=== PATIENT | female | born 1960 | race Caucasian/White ===

== ENCOUNTER → 2016-10-07 | Outpatient (CLI) | payer OTHER ==
[2016-10-07 18:53] LABS: THYROID STIMULATING HORMONE < 0.005 uIu/ml (0.300-4.500)
[2016-10-07 19:35] LABS: LYME DISEASE AB IGG NEG (NEG); LYME DISEASE AB IGM NEG (NEG)
== END | disposition home or self-care (01) ==
LOC: C.LABMFLN 12:02
PROVIDERS: ATTEND Family Medicine
DX: E55.9 Vitamin D deficiency, unspecified (principal); E53.8 Deficiency of other specified B group vitamins; E05.90 Thyrotoxicosis, unspecified without thyrotoxic crisis or storm; A69.20 Lyme disease, unspecified

== ENCOUNTER → 2017-06-30 | Outpatient (CLI) | payer OTHER ==
[2017-07-02 11:01] LABS: MICROSOMAL AB 189 IU/ML (<9)
== END | disposition home or self-care (01) ==
LOC: C.LABMFLN 14:21
PROVIDERS: ATTEND Family Medicine
DX: E06.9 Thyroiditis, unspecified (principal); J02.9 Acute pharyngitis, unspecified

== ENCOUNTER 2024-02-03 11:54 | Inpatient (IN) ==
[2024-02-03 12:32] LABS: Appearance Urine Slightly Cloudy (Clear); Bilirubin Urine 1+ (Negative); Blood Urine Trace-intact (Negative); Color Urine Yellow; Glucose Urine UA Negative (Negative); Ketones Urine Trace (Negative); Leukocyte Esterase Urine Negative (Negative); Nitrite Urine Negative (Negative); Protein Urine 1+ (Negative); Specific Gravity Urine 1.025 (1.000-1.030); Urobilinogen Urine Positive (Negative)
[2024-02-03 12:45] LABS: Epithelial Cell Urine >20 /hpf (0-2)
[2024-02-03 12:46] LABS: Bacteria Urine 3+ (None Seen); Hyaline Casts Urine Present /lpf (None Presnt); WBC Urine 0-5 /hpf (0-5)
[2024-02-03 13:00] LABS: Basophils # (auto) 0.08 K/uL (0.00-0.20); Basophils % (auto) 0.6 %; Eosinophils % (auto) 0.8 %; Hemoglobin 12.8 g/dl (12.0-16.0); Immature Granulocytes # (auto) 0.09 K/uL (0.01-0.20); Immature Granulocytes % (auto) 0.7 %; Lymphocytes # (auto) 1.46 K/uL (1.20-3.40); Lymphocytes % (auto) 11.1 %; Mean Corpuscular Hemoglobin 31.1 pg (25.0-34.0); Mean Corpuscular Hgb Conc 33.7 g/dL (32.0-36.0); Mean Corpuscular Volume 92.2 fL (80.0-100.0); Mean Platelet Volume 9.4 fL (9.4-12.4); Monocytes # (auto) 0.73 K/uL (0.11-0.59); Monocytes % (auto) 5.5 %; Neutrophils # (auto) 10.73 K/uL (1.40-6.50); Neutrophils % (auto) 81.3 %; Platelet Count 621 K/uL (130-400); RDW Coefficient of Variation 11.7 % (11.5-14.5); RDW Standard Deviation 39.6 fL (36.4-46.3); Red Blood Count 4.12 M/uL (4.20-5.40); White Blood Count 13.19 K/ul (4.8-10.8)
[2024-02-03 13:03] LABS: Albumin Globulin Ratio 0.9 (0.9-2); Albumin Level 3.6 gm/dl (3.4-5.0); BUN Creatinine Ratio 14.4 (10-20); Bilirubin,Total 0.4 mg/dl (0.2-1.0); Calcium 9.3 mg/dl (8.6-10.3); Creatinine Clr Calc Pharmacy 41.4 ml/min; Globulin 4.1 gm/dl (2.5-4.0); Potassium 3.2 mmol/L (3.5-5.1); Total Protein 7.7 gm/dl (6.0-8.3)
--- NOTE | 2024-02-03 13:41 | XRay Report ---
XR chest 1V portable CLINICAL HISTORY: illness COMPARISON STUDY: Chest CT May 02, 2023. Chest radiograph April 02, 2023. FINDINGS: No pneumothorax or pleural effusion is present. There is a 4.9 cm right suprahilar airspace opacity. There is mild asymmetric prominence of the right hilum. Lower lung interstitial thickening is present. There is underlying emphysema. No pneumothorax or pleural effusion is present. Cardiomedi astinal silhouette is normal. IMPRESSION: 1. 4.9 cm right suprahilar airspace opacity. This favors pneumonia in the correct clinical setting an d radiographic follow-up is recommended to ensure resolution. If the clinical picture is not suggesti ve of pneumonia, a chest CT is recommended to exclude a pulmonary lesion and right hilar lymphadenopa thy. 2. Lower lung interstitial thickening which may also be infectious. 3. Mild asymmetric right hilar prominence which may be due to overlapping airspace opacity or lymphad enopathy. 4. Emphysema. ACT 112: Positive. There are findings on this exam that require communication between the performing entity and the patient following Patient Test Result Information Act ([place] Act 112) guidelines. Electronically signed by: Sb Pacheco M.D. 02/03/2024 1:39 PM
[2024-02-03 13:59] LABS: Magnesium 1.8 mg/dl (1.7-2.4)
[2024-02-03] MEDS ORDERED: VANCOMYCIN CONSULT ACTIVE PRN (14:24)
--- NOTE | 2024-02-03 14:30 | Emergency Department Note ---
History of Present Illness General Chief Complaint: Abnormal Labs/Diagnostic Testing Stated Complaint: ABN RESULTS ON A CT SCAN Time Seen by Provider: 02/03/24 13:02 History of Present Illness Provider Complaint: + abnormal lab Returns today for: + called because of abnormal lab/test Description of abnormal result: Abnormal CT Associated symptoms: + shortness of breath HPI narrative: 63-year-old smoker with history of COPD presents emergency department for an abnormal CT. Patient reports that for the last 1 to 2 weeks she has been having increasing cough and difficulty breathing. Patient states she has been on multiple antibiotics including a Z-Gil and Augmentin as well as prednisone. Patient states that she had an outpatient CT scan of her chest done and was told to come into the emergency department to make sure she does not have a fungus or cancer. Home Medications Medication Instructions Recorded Confirmed Type fexofenadine 60 mg-pseudoephedrine 1 tab PO BID #180 tabs 12/27/19 01/29/24 Rx ER 120 mg tablet,ext.release,12 hr fluoxetine 40 mg capsule 40 mg PO BID #180 caps 06/25/23 01/29/24 Rx Spacer for Inhaler #1 ea 08/15/23 01/29/24 Rx olmesartan 5 mg tablet 10 mg (2 x 5 mg) PO QAM #180 tabs 09/16/23 01/29/24 Rx L.acidoph, paracasei,B. lactis 10 1 cell (0 x 10 billion cell) PO 10/07/23 01/29/24 Rx billion cell capsule DAILY #30 caps chlordiazepoxide HCl 10 mg capsule 10 mg PO TID #90 caps 10/13/23 01/29/24 Rx hydrochlorothiazide 25 mg tablet 25 mg PO DAILY #30 tabs 10/13/23 01/29/24 Rx hydrocodone 5 mg-acetaminophen 325 1 tab PO BID PRN pain #60 tabs 10/22/23 01/29/24 Rx mg tablet albuterol sulfate 90 mcg/actuation 2 puff inhalation Q4H PRN 10/24/23 01/29/24 Rx aerosol inhaler shortness of breath or wheezing #18 grams fluticasone fur. 100 mcg-umeclid 1 inh inhalation DAILY 12/02/23 01/29/24 History 62.5 mcg-vilant 25 mcg inhalat.powder (Trelegy Ellipta) famotidine 20 mg tablet 20 mg PO BID #60 tabs 01/12/24 01/29/24 Rx folic acid 1 mg tablet 1 mg PO BID #60 tabs 01/12/24 01/29/24 Rx esomeprazole magnesium 20 mg 20 mg PO BID #60 caps 01/23/24 01/29/24 Rx capsule,delayed release (Nexium) amoxicillin 875 mg-potassium 1 tab PO BID 01/29/24 01/29/24 History clavulanate 125 mg tablet azithromycin 250 mg tablet See Rx Instructions PO .COMPLEX #6 01/29/24 01/29/24 Rx tabs prednisone 20 mg tablet 20 mg PO BID 01/29/24 01/29/24 History Allergies Allergy/AdvReac Type Severity Reaction Status Date / Time NUBIA Inhibitors Allergy Unknown Unknown Verified 01/29/24 14:04 varenicline [From Chantix] AdvReac Intermediate nausea Verified 01/29/24 14:04 Past Med/Surg History Problem List Lesion of lung (Acute) Cavitating mass in right lower lung lobe History of COVID-19 Kidney cysts right - 1.7cm, left 2.8cm Bladder wall thickening Renal lesion Oral candidiasis Abdominal bloating Wheezing Hyponatremia Right upper quadrant pain Dysuria Cough Candidiasis H/O: hysterectomy Depression (Acute) Current smoker (Acute) Benign essential hypertension (Acute) Asthma (Acute) Depression with anxiety (Acute) Acid reflux disease with ulcer (Acute) Left rotator cuff tear History of partial hysterectomy H/O wisdom tooth extraction Asthma with COPD with exacerbation Bronchitis Carpal tunnel syndrome, left COPD (chronic obstructive pulmonary disease) Tobacco abuse Lumbar disc disease Cervical disc disease Burning with urination UTI (urinary tract infection) Screening for colon cancer Cough Stuffy and runny nose Wheezing Hyponatremia Seasonal allergies Lesion of vocal fold Hoarseness of voice History of hysterectomy Medical History Cervical disc disease Carpal tunnel syndrome Osteoarthritis Rheumatoid arthritis GERD (gastroesophageal reflux disease) Hypertension Depression with anxiety Lesion of vocal cord Chronic bronchitis rare res inh use Chronic obstructive pulmonary disease rare res inh use Pinched nerve in neck Surgical History History of throat surgery Microsuspension laryngoscopy with excisional biopsy of right true vocal fold lesion - 10/01/21 - Dr. Dahl H/O wisdom tooth extraction History of bilateral tubal ligation History of esophagogastroduodenoscopy (EGD) History of tooth extraction History of repair of rotator cuff left History of ear surgery Right History of back surgery lumbar disc surgery Status post hemilaminotomy Family History Father Heart disease Hypertension Aunt Breast cancer Grandmother Diabetes Other Allergies Cancer No family history of adverse response to anesthesia No family history of bleeding disorder Social History Smoking Status: Current every day smoker Tobacco Type: Cigarettes Age Started Using Tobacco: 19; packs per day: 1; Cigarettes Per Day: approx 1 ppd; Second Hand Exposure: No; Do You Dip or Chew Tobacco: No; Hx Alcohol Use: Yes Alcohol type: wine Hx Substance Use: No Preferred Language: Nigerien Communication Ability: Effective Visual Impairment: No Limitations Hearing Ability: Normal Energy Efficiency Engineer Required: No Beliefs That Will Affect Care: None Current Living Situation: Spouse current occupational status: employed Feels Safe at Home: Yes caffeine: Yes (2 cups a day) Dental Care, Regularly: Yes Physical Activity Frequency: Does not Exercise Seatbelt Use: always Assistive Devices: Glasses Physical Exam 2 Vital Signs: Vital Signs - 24 hr 02/03/24 11:57 02/03/24 13:17 02/03/24 14:11 Temperature 36.8 C Temperature Source Temporal Artery Sc an Pulse Rate 94 H 87 Pulse Rate [Apical ] 86 Pulse Rhythm Regular Pulse Strength [Ap ical] Normal Respiratory Rate 20 18 Respiratory Effort / Characteristics Non-Labored Sponta neous Non-Labored Sponta neous Respiratory Depth Normal Normal Respiratory Patter n Regular Blood Pressure 102/67 Blood Pressure [Le ft Arm] 110/73 Blood Pressure Shanna n 78 Blood Pressure Shanna n [Left Arm] 85 Pulse Oximetry 98 97 Oxygen Delivery Me thod Room Air Room Air Sepsis Recent Feve r Within 48 Hours No Sepsis New/Unexpla ined Change in Men is[place] Status No Sepsis Action Take n by Nursing No Action Required Physical Exam: Physical Exam HENT: Exam performed. - Head: Normocephalic and atraumatic. EYES: Conjunctivae and EOM are normal. Right eye exhibits no discharge. Left eye exhibits no discharge. No scleral icterus. NECK: Normal range of motion. Neck supple. No JVD present. CV: Normal rate, regular rhythm, normal heart sounds and intact distal pulses. There is no peripheral edema. Palpable radial pulses bue. PULM/CHEST: Rhonchi bilaterally. Expiratory wheezes bilaterally. ABD: The abdomen is soft. There is no tenderness. NEURO: Motor and sensation grossly intact. SKIN: Skin is warm and dry. He is not diaphoretic. PSYCH: normal mood and affect. Behavior is normal. Judgment and thought content normal. Course Course 1302: The patient was evaluated in room A12. A complete history and physical exam was performed Cardiac monitoring: An order was placed for continuous cardiac monitoring. The monitor shows a rate of 90 with sinus rhythm interpreted by me External medical records reviewed. Patient had an outpatient CT scan of her chest without contrast done on January 30, 2024, [address] scan showed a thick-walled cystic lesion in the right lower lobe with surrounding groundglass opacity with septal thickening. Differential included malignancy, infection, or fungal abscess. They recommended a bronchoscopy. 1418: Vital signs stable. Labs show leukocytosis of 13. Patient has been on steroids. Lactic acid within normal limits. Sodium 129. Potassium 3.2. Potassium repleted orally. Discussed the case with pulmonology Dr. Molina. He recommends admitting to the inpatient team for bronchoscopy tomorrow. He states to begin the patient on Vanco and Zosyn. [facility] hospitalist team will be made aware of the patient. Medical Decision Making Medical Records Attestation: I reviewed the patient's medical records. External medical records reviewed. Patient had an outpatient CT scan of her chest without contrast done on January 30, 2024, [address] scan showed a thick-walled cystic lesion in the right lower lobe with surrounding groundglass opacity with septal thickening. Differential included malignancy, infection, or fungal abscess. They recommended a bronchoscopy. Laboratory Data Attestation: I reviewed the patient's lab results. 02/03/24 12:16 02/03/24 12:16 Lab Results 02/03/24 02/03/24 02/03/24 Range/Units 12:05 12:16 13:45 WBC 13.19 H (4.8-10.8) K/ul RBC 4.12 L (4.20-5.40) M/uL Hgb 12.8 (12.0-16.0) g/dl Hct 38.0 (37.0-47.0) % MCV 92.2 (80.0-100.0) fL MCH 31.1 (25.0-34.0) pg MCHC 33.7 (32.0-36.0) g/dL RDW Std Deviation 39.6 (36.4-46.3) fL RDW Coeff of Lissette 11.7 (11.5-14.5) % Plt Count 621 H (130-400) K/uL MPV 9.4 (9.4-12.4) fL Immature Gran % (Auto) 0.7 % Neut % (Auto) 81.3 % Lymph % (Auto) 11.1 % [place] % (Auto) 5.5 % Eos % (Auto) 0.8 % Baso % (Auto) 0.6 % Neut # (Auto) 10.73 H (1.40-6.50) K/uL Lymph # (Auto) 1.46 (1.20-3.40) K/uL [place] # (Auto) 0.73 H (0.11-0.59) K/uL Eos # (Auto) 0.10 (0.00-0.50) K/uL Baso # (Auto) 0.08 (0.00-0.20) K/uL Immature Gran # (Auto) 0.09 (0.01-0.20) K/uL Sodium 129 L (136-145) mmol/L Potassium 3.2 L (3.5-5.1) mmol/L Chloride 91 L (98-107) mmol/L Carbon Dioxide 29 (21-32) mmol/L Anion Gap 9 (3-11) BUN 19 (6-23) mg/dl Creatinine 1.32 H (0.6-1.2) mg/dl Est Cr Clr Drug Dosing 41.4 ml/min eGFR 45.65 BUN/Creatinine Ratio 14.4 (10-20) Glucose 106 H (70-99(Fasting)) mg/dl Lactate 0.9 (0.4-2.0) mmol/L Calcium 9.3 (8.6-10.3) mg/dl Magnesium 1.8 (1.7-2.4) mg/dl Total Bilirubin 0.4 (0.2-1.0) mg/dl AST 15 (13-39) U/L ALT 15 (7-52) U/L Alkaline Phosphatase 96 (34-104) U/L Total Protein 7.7 (6.0-8.3) gm/dl Albumin 3.6 (3.4-5.0) gm/dl Globulin 4.1 H (2.5-4.0) gm/dl Albumin/Globulin Ratio 0.9 (0.9-2) Urine Color Yellow Urine Appearance Slightly Cloudy (Clear) Urine pH 5.0 (4.5-7.5) Ur Specific Wisdom 1.025 (1.000-1.030) Urine Protein 1+ H (Negative) Urine Glucose (UA) Negative (Negative) Urine Ketones Trace H (Negative) Urine Blood Trace-intact H (Negative) Urine Nitrite Negative (Negative) Urine Bilirubin 1+ H (Negative) Urine Urobilinogen Positive H (Negative) Ur Leukocyte Esterase Negative (Negative) Urine RBC 3-5 H (0-2) /hpf Urine WBC 0-5 (0-5) /hpf Ur Epithelial Cells >20 H (0-2) /hpf Urine Bacteria 3+ H (None Seen) Hyaline Casts Present A (None Presnt) /lpf Imaging Data Radiologist's Impression: Chest X-Ray 02/03/24 12:03 XR chest 1V portable CLINICAL HISTORY: illness COMPARISON STUDY: Chest CT May 02, 2023. Chest radiograph April 02, 2023. FINDINGS: No pneumothorax or pleural effusion is present. There is a 4.9 cm right suprahilar airspace opacity. There is mild asymmetric prominence of the right hilum. Lower lung interstitial thickening is present. There is underlying emphysema. No pneumothorax or pleural effusion is present. Cardiomediastinal silhouette is normal. IMPRESSION: 1. 4.9 cm right suprahilar airspace opacity. This favors pneumonia in the correct clinical setting and radiographic follow-up is recommended to ensure resolution. If the clinical picture is not suggestive of pneumonia, a chest CT is recommended to exclude a pulmonary lesion and right hilar lymphadenopathy. 2. Lower lung interstitial thickening which may also be infectious. 3. Mild asymmetric right hilar prominence which may be due to overlapping airspace opacity or lymphadenopathy. 4. Emphysema. ACT 112: Positive. There are findings on this exam that require communication between the performing entity and the patient following Patient Test Result Information Act ([place] Act 112) guidelines. Electronically signed by: Sb Pacheco M.D. 02/03/2024 1:39 PM ECG Data Attestation: I personally reviewed and interpreted this ECG as follows: Rate (beats per minute): 93 Rhythm: normal sinus Findings: no ST depression, no ST elevation or no prolonged QT MDM Narrative 1302: The patient was evaluated in room A12. A complete history and physical exam was performed Cardiac monitoring: An order was placed for continuous cardiac monitoring. The monitor shows a rate of 90 with sinus rhythm interpreted by me External medical records reviewed. Patient had an outpatient CT scan of her chest without contrast done on January 30, 2024, [address] scan showed a thick-walled cystic lesion in the right lower lobe with surrounding groundglass opacity with septal thickening. Differential included malignancy, infection, or fungal abscess. They recommended a bronchoscopy. 1418: Vital signs stable. Labs show leukocytosis of 13. Patient has been on steroids. Lactic acid within normal limits. Sodium 129. Potassium 3.2. Potassium repleted orally. Discussed the case with pulmonology Dr. Molina. He recommends admitting to the inpatient team for bronchoscopy tomorrow. He states to begin the patient on Vanco and Zosyn. [facility] hospitalist team will be made aware of the patient. Impression & Plan Lesion of lung Discharge Plan Visit Data Chief Complaint: Abnormal Labs/Diagnostic Testing Stated Complaint: ABN RESULTS ON A CT SCAN ED Provider: Frank Golden Discharge Problem: Lesion of lung Patient Disposition: Being Evaluated by Hospitalist Forms Stand Alone Forms: My [facility] Prescriptions Prescriptions: No Action fexofenadine-pseudoephedrine 60-120 mg tablet extended release 12 hr 1 tab PO BID Qty: 180 3RF fluoxetine 40 mg capsule 40 mg PO BID Qty: 180 3RF olmesartan 5 mg tablet 10 mg PO QAM Qty: 180 1RF L.acidoph, paracasei,B. lactis 10 billion cell capsule 1 cell PO DAILY Qty: 30 5RF chlordiazepoxide HCl 10 mg capsule 10 mg PO TID Qty: 90 2RF hydrochlorothiazide 25 mg tablet 25 mg PO DAILY Qty: 30 2RF albuterol sulfate 90 mcg/actuation HFA aerosol inhaler 2 puff inhalation Q4H PRN (Reason: shortness of breath or wheezing) Qty: 18 3RF folic acid 1 mg tablet 1 mg PO BID Qty: 60 5RF Rx Instructions: TAKE ONE TABLET BY MOUTH TWICE A DAY esomeprazole magnesium [Nexium] 20 mg capsule,delayed release(DR/EC) 20 mg PO BID Qty: 60 1RF hydrocodone-acetaminophen 5-325 mg tablet 1 tab PO BID PRN (Reason: pain) Qty: 60 0RF (DME) Spacer for Inhaler Misc See Rx Instructions .Route Qty: 1 0RF Rx Instructions: use with HFA every 4 hrs PRN famotidine 20 mg tablet 20 mg PO BID Qty: 60 2RF amoxicillin-pot clavulanate 875-125 mg tablet 1 tab PO BID prednisone 20 mg tablet 20 mg PO BID azithromycin 250 mg tablet See Rx Instructions PO .COMPLEX Qty: 6 0RF Rx Instructions: For 250 mg dose pack: take 500 mg today (day 1), then 250 mg for 4 days (days 2-5) PO Trelegy Ellipta 100-62.5-25 mcg blister with device 1 inh inhalation DAILY Referrals Referrals: Tamela Díaz DO [Primary Care Provider] -
[2024-02-03] MEDS: POTASSIUM CHLORIDE 10 MEQ TABCR PO STA (15:04)
[2024-02-03] MEDS: PIPERACILLIN/TAZOBACTAM 4.5 GM/120 ML BAG IV ONE (15:04)
[2024-02-03] MEDS: VANCOMYCIN HCL 1,500 MG in SODIUM CHLORIDE 0.9% 500 ML IV ONE (15:34)
--- NOTE | 2024-02-03 15:34 | History & Physical Report ---
Date of Service February 03, 2024 Assessment & Plan (1) Cavitating mass in right lower lung lobe: Plan: MRSA nasal swab IV vancomycin + Zosyn No recent travel, immunosuppression, diabetes, chronic steroids, transplant or exposure to suggest tuberculosis Consult pulmonology to consider bronchoscopy, NPO after midnight (2) Hyponatremia: Plan: Urine sodium and osm to assess etiology (3) Tobacco abuse: Plan: Declines nicotine patch (4) COPD (chronic obstructive pulmonary disease): Plan: Continue maintenance inhalers No acute exacerbation suspected on exam Plan Anxiety - continue fluoxetine and Librium GERD - switch Nexium to pantoprazole per hospital formulary VTE Prophylaxis - heparin 5000 units SQ BID (hold prior to bronchoscopy) Diet - regular, NPO after midnight Disposition - admit to med/tele Admission and Anticipated Discharge Date Admission Date: February 03, 2024 History of Present Illness Chief Complaint: Abnormal outpatient CT chest Primary Care Provider: DO Andrés Mayervin Yoder is a 63 year old female who presents to the ER due to abnormal outpatient CT chest. Her initial sickness started on January 23 with generalized illness and vomited. She woke up the following day and felt like she had been run over by a [place] train. She was seen at urgent care and diagnosed ith sinus infection and bronchitis and started on Augmentin and prednisone (picked up on January 25). She reports no significant change with this medication. On January 28 while going to work she felt more generalized fatigue and illness therefore saw her PCP who subsequently arranged a CXR, added azithromycin (started January 29). CXR was concerning for a cavitory lesion and CT chest was arranged for the following day. This confirmed a cavitary lesion and she was set up with pulmonology follow up and eventual recommendation to come to the ER today on review of her imaging. She reports new productive cough of brown/green sputum during this time. Her shortness of breath and wheezing are at baseline. She hasn't smoked for 2 weeks due to this illness (previously 1 pck/day). Right back chest pain only on coughing, none on inspiration. No fever or chills. No recent travel outside of the country. Allergies Allergy/AdvReac Type Severity Reaction Status Date / Time NUBIA Inhibitors Allergy Unknown Unknown Verified 02/03/24 15:36 varenicline [From Chantix] AdvReac Intermediate nausea Verified 02/03/24 15:36 Home Medications Medication Instructions Recorded Confirmed Type fexofenadine 60 mg-pseudoephedrine 1 tab PO BID #180 tabs 12/27/19 02/03/24 Rx ER 120 mg tablet,ext.release,12 hr fluoxetine 40 mg capsule 40 mg PO BID #180 caps 06/25/23 02/03/24 Rx Spacer for Inhaler #1 ea 08/15/23 01/29/24 Rx olmesartan 5 mg tablet 10 mg (2 x 5 mg) PO QAM #180 tabs 09/16/23 02/03/24 Rx chlordiazepoxide HCl 10 mg capsule 10 mg PO TID #90 caps 10/13/23 02/03/24 Rx hydrochlorothiazide 25 mg tablet 25 mg PO DAILY #30 tabs 10/13/23 02/03/24 Rx hydrocodone 5 mg-acetaminophen 325 1 tab PO BID PRN pain #60 tabs 10/22/23 02/03/24 Rx mg tablet albuterol sulfate 90 mcg/actuation 2 puff inhalation Q4H PRN 10/24/23 02/03/24 Rx aerosol inhaler shortness of breath or wheezing #18 grams fluticasone fur. 100 mcg-umeclid 1 inh inhalation DAILY 12/02/23 02/03/24 History 62.5 mcg-vilant 25 mcg inhalat.powder (Trelegy Ellipta) folic acid 1 mg tablet 1 mg PO BID #60 tabs 01/12/24 02/03/24 Rx esomeprazole magnesium 20 mg 20 mg PO BID #60 caps 01/23/24 02/03/24 Rx capsule,delayed release (Nexium) amoxicillin 875 mg-potassium 1 tab PO BID 01/29/24 02/03/24 History clavulanate 125 mg tablet azithromycin 250 mg tablet See Rx Instructions PO .COMPLEX #6 01/29/24 02/03/24 Rx tabs L.acidophil-L.casei-B.bifid-B.longum-FOS 1 cap PO DAILY 02/03/24 02/03/24 History 2 billion cell-50 mg capsule (Probiotic Blend) Past Med/Surg History Problem List (Updated 02/03/24 @ 18:15 by Jeff Smith MD) Lesion of lung (Acute) Cavitating mass in right lower lung lobe History of COVID-19 Kidney cysts right - 1.7cm, left 2.8cm Bladder wall thickening Renal lesion Abdominal bloating Wheezing Hyponatremia Right upper quadrant pain Cough Depression (Acute) Current smoker (Acute) Benign essential hypertension (Acute) Asthma (Acute) Depression with anxiety (Acute) Acid reflux disease with ulcer (Acute) Left rotator cuff tear H/O wisdom tooth extraction Bronchitis Carpal tunnel syndrome, left COPD (chronic obstructive pulmonary disease) Tobacco abuse Lumbar disc disease Cervical disc disease Burning with urination UTI (urinary tract infection) Screening for colon cancer Cough Stuffy and runny nose Wheezing Seasonal allergies Lesion of vocal fold Hoarseness of voice History of hysterectomy Medical History (Updated 02/03/24 @ 18:15 by Jeff Smith MD) Cervical disc disease Carpal tunnel syndrome Osteoarthritis Rheumatoid arthritis GERD (gastroesophageal reflux disease) Hypertension Depression with anxiety Lesion of vocal cord Chronic bronchitis rare res inh use Chronic obstructive pulmonary disease rare res inh use Pinched nerve in neck Surgical History (Updated 02/03/24 @ 18:15 by Jeff Smith MD) History of partial hysterectomy H/O: hysterectomy History of throat surgery Microsuspension laryngoscopy with excisional biopsy of right true vocal fold lesion - 01/12/21 - Dr. Dahl H/O wisdom tooth extraction History of bilateral tubal ligation History of esophagogastroduodenoscopy (EGD) History of tooth extraction History of repair of rotator cuff left History of ear surgery Right History of back surgery lumbar disc surgery Status post hemilaminotomy Family History Father Heart disease Hypertension Aunt Breast cancer Grandmother Diabetes Other Allergies Cancer No family history of adverse response to anesthesia No family history of bleeding disorder Social History Smoking Status: Former smoker Tobacco Type: Cigarettes Age Started Using Tobacco: 19; packs per day: 1; Cigarettes Per Day: approx 1 ppd; Second Hand Exposure: No; Do You Dip or Chew Tobacco: No; Hx Alcohol Use: Yes Alcohol type: wine Hx Substance Use: No Preferred Language: Marshallese Communication Ability: Effective Visual Impairment: No Limitations Hearing Ability: Normal Supervisor Backfilling Required: No Beliefs That Will Affect Care: None Current Living Situation: Spouse current occupational status: employed Feels Safe at Home: Yes caffeine: Yes (2 cups a day) Dental Care, Regularly: Yes Physical Activity Frequency: Does not Exercise Seatbelt Use: always Assistive Devices: None Review of Systems Review of Systems: All systems reviewed & are unremarkable except as noted in HPI & below Physical Exam Constitutional: WD/WN, vitals as above Eyes: + anicteric sclerae; normal pupil size ENMT: external ear and nose normal, oropharynx normal Respiratory: normal respiratory effort; no respiratory distress Auscultation: breath sounds present, no diminished lung sounds, no crackles, no rales, no rhonchi and no wheezes Cardiovascular: RRR, no murmur, no edema Gastrointestinal (Abdomen): normal bowel sounds, soft, nontender, no hepatosplenomegaly Skin: no rashes, warm and dry Neurologic: moves all extremities and awake; not confused Psychiatric: A+Ox3, euthymic affect Genitourinary: no CVA tenderness Results & Data Results & Data Vital Signs (Past 12 Hours) Vital Signs Temp Pulse Pulse Resp BP BP Pulse Ox 02/03/24 15:07 83 17 107/74 96 02/03/24 14:11 87 02/03/24 13:17 86 18 110/73 97 02/03/24 11:57 36.8 C 94 H 20 102/67 98 O2 Del Method 02/03/24 15:07 Room Air 02/03/24 14:11 02/03/24 13:17 Room Air 02/03/24 11:57 Room Air Laboratory Results Abnormal lab results 02/03/24 02/03/24 02/03/24 Range/Units 12:05 12:16 15:04 WBC 13.19 H (4.8-10.8) K/ul RBC 4.12 L (4.20-5.40) M/uL Plt Count 621 H (130-400) K/uL Neut # (Auto) 10.73 H (1.40-6.50) K/uL Overton # (Auto) 0.73 H (0.11-0.59) K/uL Sodium 129 L (136-145) mmol/L Potassium 3.2 L (3.5-5.1) mmol/L Chloride 91 L (98-107) mmol/L Creatinine 1.32 H (0.6-1.2) mg/dl Glucose 106 H (70-99(Fasting)) mg/dl Osmolality 265 L (280-300) mOsm/kg Globulin 4.1 H (2.5-4.0) gm/dl Urine Protein 1+ H (Negative) Urine Ketones Trace H (Negative) Urine Blood Trace-intact H (Negative) Urine Bilirubin 1+ H (Negative) Urine Urobilinogen Positive H (Negative) Urine RBC 3-5 H (0-2) /hpf Ur Epithelial Cells >20 H (0-2) /hpf Urine Bacteria 3+ H (None Seen) Hyaline Casts Present A (None Presnt) /lpf Urine Osmolality (500-800) mOsm/kg 02/03/24 Range/Units 17:05 WBC (4.8-10.8) K/ul RBC (4.20-5.40) M/uL Plt Count (130-400) K/uL Neut # (Auto) (1.40-6.50) K/uL Overton # (Auto) (0.11-0.59) K/uL Sodium (136-145) mmol/L Potassium (3.5-5.1) mmol/L Chloride (98-107) mmol/L Creatinine (0.6-1.2) mg/dl Glucose (70-99(Fasting)) mg/dl Osmolality (280-300) mOsm/kg Globulin (2.5-4.0) gm/dl Urine Protein (Negative) Urine Ketones (Negative) Urine Blood (Negative) Urine Bilirubin (Negative) Urine Urobilinogen (Negative) Urine RBC (0-2) /hpf Ur Epithelial Cells (0-2) /hpf Urine Bacteria (None Seen) Hyaline Casts (None Presnt) /lpf Urine Osmolality 234 L (500-800) mOsm/kg Diagnostic Findings XR chest 1V portable CLINICAL HISTORY: illness COMPARISON STUDY: Chest CT May 02, 2023. Chest radiograph April 02, 2023. FINDINGS: No pneumothorax or pleural effusion is present. There is a 4.9 cm righ t suprahilar airspace opacity. There is mild asymmetric prominence of the right hilum. Lower lung interstitial thickening is present. There is underlying emphysema. No pneumothorax or pleural effusion is present. Cardiomediastinal silhouette is normal. IMPRESSION: 1. 4.9 cm right suprahilar airspace opacity. This favors pneumonia in the correct clinical setting and radiographic follow-up is recommended to ensure resolution. If the clinical picture is not suggestive of pneumonia, a chest CT is recommended to exclude a pulmonary lesion and right hilar lymphadenopathy. 2. Lower lung interstitial thickening which may also be infectious. 3. Mild asymmetric right hilar prominence which may be due to overlapping airspace opacity or lymphadenopathy. 4. Emphysema. Medications Administered ER Medications Given: Zosyn 4.5g IV Vancomycin 1500mg IV Potassium chloride 40 meq PO ECG Rate (beats per minute): 93 Rhythm: normal sinus Findings: + nonspecific-ST abn Comparison ECG Date: from (January 08, 2021) Change: the following changes noted (T wave flattening in anterior leads) Code Status & VTE Plan Code Status Full VTE Prophylaxis Plan VTE Prophylaxis will be ordered: Yes PG Care Time/CCT Total # of Minutes Spent Total Time Spent with Patient: Total time spent is greater than 50% in coordination of care (as documented) at patient's floor/unit and/or counseling patient: Coding Level of Care Code 25188 INT INP/OBS CARE 3/75MIN Diagnoses Cavitating mass in right lower lung lobe J98.4 Hyponatremia E87.1 Tobacco abuse Z72.0 COPD (chronic obstructive pulmonary disease) J44.9
[2024-02-03 15:44] LABS: INR 0.9 (0.9-1.1); Partial Thromboplastin Time 27 Seconds (21-31); Prothrombin Time 10.3 Seconds (9.0-12.0)
[2024-02-03] MEDS: PIPERACILLIN/TAZOBACTAM 4.5 GM/100 ML BAG IV SCH (19:23)
[2024-02-03] MEDS: FLUoxetine HCL 20 MG CAP PO SCH (20:09)
[2024-02-03] MEDS: FOLIC ACID 1 MG TAB PO SCH (20:09)
[2024-02-03] MEDS: FEXOFENADINE 60 MG TAB PO SCH (20:09)
[2024-02-03] MEDS: PANTOprazole 40 MG TAB PO SCH (20:09)
[2024-02-03] MEDS: HEPARIN SOD 5,000 UNIT/0.5 ML VIAL SQ SCH (20:10)
[2024-02-04] MEDS: FLUTICASONE FUROATE 100MCG 14 PUFFS/INHALER INH SCH (08:28)
[2024-02-04] MEDS: UMECLIDINIUM/VILANTEROL 62.5/25MCG 7 PUFFS/INHALER INH SCH (08:29)
[2024-02-04 08:53] LABS: Basophils # (auto) 0.07 K/uL (0.00-0.20); Basophils % (auto) 0.6 %; Eosinophils % (auto) 1.7 %; Hematocrit (blood only) 37.7 % (37.0-47.0); Hemoglobin 12.9 g/dl (12.0-16.0); Immature Granulocytes # (auto) 0.08 K/uL (0.01-0.20); Immature Granulocytes % (auto) 0.7 %; Lymphocytes % (auto) 15.6 %; Mean Corpuscular Hemoglobin 31.2 pg (25.0-34.0); Mean Corpuscular Hgb Conc 34.2 g/dL (32.0-36.0); Mean Corpuscular Volume 91.3 fL (80.0-100.0); Mean Platelet Volume 9.3 fL (9.4-12.4); Monocytes % (auto) 5.2 %; Neutrophils # (auto) 8.77 K/uL (1.40-6.50); Neutrophils % (auto) 76.2 %; Platelet Count 635 K/uL (130-400); RDW Coefficient of Variation 11.8 % (11.5-14.5); RDW Standard Deviation 39.6 fL (36.4-46.3); Red Blood Count 4.13 M/uL (4.20-5.40); White Blood Count 11.52 K/ul (4.8-10.8)
[2024-02-04 09:10] LABS: Calcium 9.2 mg/dl (8.6-10.3); Creatinine Clr Calc Pharmacy 54.6 ml/min; Potassium 3.8 mmol/L (3.5-5.1)
[2024-02-04] MEDS: VANCOMYCIN HCL 1,000 MG/270 ML BAG IV SCH (10:33)
--- NOTE | 2024-02-04 10:36 | Pulmonary Consultation ---
Date of Consultation February 04, 2024 Assessment & Plan (1) Cavitating mass in right lower lung lobe: Differential for the cavitary lesion is broad including atypical infection such as nocardia, actinomyces, fungal infections and tuberculosis. QuantiFERON gold and Fungitell is pending. Will proceed with bronchoscopy to evaluate for underlying malignancy and/or atypical infection. Agree with vancomycin and Zosyn for the time being. I went over in detail the risk and benefits of bronchoscopy with the patient including but not limited to respiratory failure requiring mechanical ventilation, pneumothorax, myocardial infarction and . Patient understands the risks and is willing to proceed. (2) Lesion of lung: She did have a 4 to 5 mm right lower lobe lung nodule on CT chest 05/02/2023 now has a cavitary lesion. Unclear whether these findings are related or not. The nodule seen on previous CT was on the periphery and perifissural, but it does appear to have grown in size slightly by about 2 mm. It is not in the same location which is reassuring as the cavitary lesion which is reassuring. Malignancy certainly in the differential. (3) COPD (chronic obstructive pulmonary disease): She does not have clear evidence of a COPD exacerbation at this present time. Agree with LABA/LAMA inhaler. Will limit ICS exposure at this time given the findings concerning for active infection. She does have a history of moderate airflow obstruction with severe air trapping on previous PFTs and has been seen in the pulmonary clinic in the past. Plan Thank you for the consult. Will follow with you. History of Present Illness Reason for Consultation: Right lower lobe cavitary pneumonia Attending Physician: Jeff Merino MD History of Present Illness 63-year-old female with a 96-csrp-ofha smoking history presenting to the hospital due to ongoing shortness of breath and cough with productive sputum. She notes that over the past 2 weeks she has had a loss of appetite. She denies any overt fevers. She notes that she quit smoking about 2 weeks ago. She denies any overt sick contacts. She denies any history of TB exposure. She had an outpatient CT of her chest on January 29 which revealed a thick-walled cystic lesion in the right lower lobe with surrounding groundglass. Radiology noted that the differential is malignancy versus infection and bronchoscopy was recommended. Currently she is on room air and saturating well. She has an occasional cough. She notes that her sputum production has become less voluminous today. She was treated as an outpatient with Augmentin and azithromycin. She is currently on vancomycin and Zosyn. Allergies Allergy/AdvReac Type Severity Reaction Status Date / Time NUBIA Inhibitors Allergy Unknown Unknown Verified 02/03/24 15:36 varenicline [From Chantix] AdvReac Intermediate nausea Verified 02/03/24 15:36 Home Medications Medication Instructions Recorded Confirmed Type fexofenadine 60 mg-pseudoephedrine 1 tab PO BID #180 tabs 12/27/19 02/03/24 Rx ER 120 mg tablet,ext.release,12 hr fluoxetine 40 mg capsule 40 mg PO BID #180 caps 06/25/23 02/03/24 Rx Spacer for Inhaler #1 ea 08/15/23 01/29/24 Rx olmesartan 5 mg tablet 10 mg (2 x 5 mg) PO QAM #180 tabs 09/16/23 02/03/24 Rx chlordiazepoxide HCl 10 mg capsule 10 mg PO TID #90 caps 10/13/23 02/03/24 Rx hydrochlorothiazide 25 mg tablet 25 mg PO DAILY #30 tabs 10/13/23 02/03/24 Rx hydrocodone 5 mg-acetaminophen 325 1 tab PO BID PRN pain #60 tabs 10/22/2301/13 Rx mg tablet albuterol sulfate 90 mcg/actuation 2 puff inhalation Q4H PRN 10/24/23 02/03/24 Rx aerosol inhaler shortness of breath or wheezing #18 grams fluticasone fur. 100 mcg-umeclid 1 inh inhalation DAILY 12/02/23 02/03/24 History 62.5 mcg-vilant 25 mcg inhalat.powder (Trelegy Ellipta) folic acid 1 mg tablet 1 mg PO BID #60 tabs 01/12/24 02/03/24 Rx esomeprazole magnesium 20 mg 20 mg PO BID #60 caps 01/23/24 02/03/24 Rx capsule,delayed release (Nexium) amoxicillin 875 mg-potassium 1 tab PO BID 01/29/24 02/03/24 History clavulanate 125 mg tablet azithromycin 250 mg tablet See Rx Instructions PO .COMPLEX #6 01/29/24 02/03/24 Rx tabs L.acidophil-L.casei-B.bifid-B.longum-FOS 1 cap PO DAILY 02/03/24 02/03/24 History 2 billion cell-50 mg capsule (Probiotic Blend) Patient History Medical History (Updated 02/03/24 @ 18:15 by Jeff Smith MD) Cervical disc disease Carpal tunnel syndrome Osteoarthritis Rheumatoid arthritis GERD (gastroesophageal reflux disease) Hypertension Depression with anxiety Lesion of vocal cord Chronic bronchitis rare res inh use Chronic obstructive pulmonary disease rare res inh use Pinched nerve in neck Surgical History (Updated 02/03/24 @ 18:15 by Jeff Smith MD) History of partial hysterectomy H/O: hysterectomy History of throat surgery Microsuspension laryngoscopy with excisional biopsy of right true vocal fold lesion - 01/12/21 - Dr. Dahl H/O wisdom tooth extraction History of bilateral tubal ligation History of esophagogastroduodenoscopy (EGD) History of tooth extraction History of repair of rotator cuff left History of ear surgery Right History of back surgery lumbar disc surgery Status post hemilaminotomy Family History Father Heart disease Hypertension Aunt Breast cancer Grandmother Diabetes Other Allergies Cancer No family history of adverse response to anesthesia No family history of bleeding disorder Social History Smoking Status: Former smoker Tobacco Type: Cigarettes Age Started Using Tobacco: 19; packs per day: 1; Cigarettes Per Day: approx 1 ppd; Second Hand Exposure: No; Do You Dip or Chew Tobacco: No; Hx Alcohol Use: Yes Alcohol type: wine Hx Substance Use: No Preferred Language: Bangladeshi Communication Ability: Effective Visual Impairment: No Limitations Hearing Ability: Normal Manufacturing Intern Required: No Beliefs That Will Affect Care: None Current Living Situation: Spouse current occupational status: employed Other Information That Helps Us Care for You: No Feels Safe at Home: Yes Safety Concerns: Feels Safe At This Time caffeine: Yes (2 cups a day) Dental Care, Regularly: Yes Physical Activity Frequency: Does not Exercise Seatbelt Use: always Assistive Devices: None Review of Systems Review of Systems: All systems reviewed & are unremarkable except as noted in HPI & below Physical Exam Physical Exam: Constitutional: Patient appears to be of their stated age. Patient is in no apparent distress. Patient is well-developed. Eyes: Pupils are equal round and reactive to light. Conjunctivae are normal. Anicteric sclera. Ears nose, mouth and throat: Mallampati class 2. Normal posterior oropharynx. Uvula is midline. Neck: Trachea is midline. Visual inspection is normal. Respiratory: Coarse rhonchi in the right lower lobe. Prolonged phase of exhalation. No wheezing or increased work of breathing at present. Cardiovascular: Regular rate and rhythm. No murmurs. No edema. Gastrointestinal: Normal bowel sounds, soft, nontender and nondistended. No hepatosplenomegaly noted. Musculoskeletal: No cyanosis. Patient is able to move all extremities. Strength is 5 out of 5 in the upper and lower extremities. Skin: No rashes, warm dry and intact. Neurologic: No obvious focal neurological deficits seen. Psychiatric: Alert and oriented x3 with a euthymic affect. Results & Data Results & Data Vital Signs (Past 12 Hours) Vital Signs Temp Pulse Pulse Resp BP Pulse Ox O2 Del Method 02/04/24 07:38 Room Air 02/04/24 07:16 36.9 C 88 20 105/71 98 Room Air 02/04/24 06:00 36.9 C 79 18 119/78 98 Room Air 02/04/24 03:41 37.0 C 81 18 106/68 95 Room Air 02/03/24 23:56 78 02/03/24 23:30 Room Air 02/03/24 23:30 36.9 C 79 18 119/78 98 Room Air PG Care Time/CCT Total # of Minutes Spent Total Time Spent with Patient: Total time spent is greater than 50% in coordination of care (as documented) at patient's floor/unit and/or counseling patient: Coding Level of Care Code 81152 IN/OBS CONSULT LVL 4,60M Diagnoses Cavitating mass in right lower lung lobe J98.4 Lesion of lung R91.1 COPD (chronic obstructive pulmonary disease) J44.9
--- NOTE | 2024-02-04 10:50 | Pharmacy Report ---
Pharmacy PK ABX Note - Date of Service February 04, 2024 - Assessment and Plan Assessment 02/03: Renal function improved today, will increase frequency accordingly to regimen predicted to achieve goal AUC/JASMIN. 63 year old F receiving vancomycin/Zosyn for treatment of cavitating mass in right lower lung lobe. Pertinent microbiologic data includes: negative MRSA Nasal Swab, sputum culture gram stain with moderate GPCs, few gram negative cocci, and few gram positive bacilli (final identification and sensitivities pending), urine culture pending, QuantiFERON gold and Fungitell pending. Bronchoscopy scheduled for today. Treated as an outpatient with Augmentin and azithromycin. Day # 2 of antimicrobial therapy. Plan Vancomycin * Loading dose: 1500 mg IV x 1 * Maintenance dose: 1000 mg IV every 18 hours * Regimen is predicted to achieve target AUC/JASMIN of 400-600 mg/L.hr * Random level ordered for: 02/06/24 @1200. Pharmacy will continue to follow and will adjust dose/frequency as necessary. Thank you. Pharmacy has transitioned to AUC monitoring for vancomycin. AUC/JASMIN is the preferred PK/PD target and is associated with decreased risk of nephrotoxicity compared to traditional trough targets.
--- NOTE | 2024-02-04 12:39 | Hospitalist Progress Note ---
Date of Service February 04, 2024 Assessment & Plan (1) Cavitating mass in right lower lung lobe: Plan: pulmonary abscess - recent generalized illness - on Augmentin, prednisone, and azithromycin prior to admission - No recent travel, immunosuppression, diabetes, chronic steroids, transplant or exposure to suggest tuberculosis - 40+ smoking pack year history - found on outpt CT scan 01/29 - 4.9 x 4.8 cm thick walled cystic lesion; additional nodule in superior segments of RLL seen and relating to previous CT scan 05/02/2023, unclear if second nodule relating to cystic lesion at this time - leukocytosis improving, afebrile - procal negative - MRSA nasal swab negative - sputum culture pending - QuantiFERON gold and Fungitell pending - continue with IV vancomycin + Zosyn; pharmacy following, renal function improving - pulmonology following; bronchoscopy 02/03 - surgical cultures pending - infectious disease consulted (2) Hyponatremia: Plan: Hyponatremic on admission; improving - Na 129 -> 131 - Serum osmolality 265, Urine NA 25, Urine osmol 234 - suggestive of hypotonic hyponatremia - recent TSH 11/17/23 WNL - will recheck in AM - Cortisol level in AM - daily BMP (3) Tobacco abuse: Plan: Declines nicotine patch (4) Hypokalemia: Plan: Improved Patient on hydrochlorothiazide at home - K+ 3.2 -> 40 MEQ given -> 3.8 - Continue to hold hydrochlorothiazide - Daily BMP (5) COPD (chronic obstructive pulmonary disease): Plan: - Non-hypoxic - No acute exacerbation suspected at this time - Continue LABA/LAMA inhaler - as per pulmonology recommendations will discontinue ICS inhaler at this time for concern of acute infection (6) Hypertension: Plan: Hypotensive on admission - Held home HCTZ and olmesartan on admission; continue Plan Anxiety - continue fluoxetine and Librium GERD - switch Nexium to pantoprazole per hospital formulary VTE Prophylaxis - heparin 5000 units SQ BID (hold prior to bronchoscopy) Diet - regular Disposition - med/tele Admission and Anticipated Discharge Date Admission Date: February 03, 2024 Supervising Physician Co-Signing Physician Notes Attending Attestation - Chart reviewed in detail, care plan d/w RAFAEL Sanford. I agree w/ the cowart components of her documentation. Appreciate pulmonary consultation. s/p bronchoscopy today due to RLL cavitary lesion. pulmonary feels this is likely a pulmonary abscess. Plan for ID consultation. Await Quantiferon gold testing, AFB/fungal cultures, multiple bacterial cx's, etc. Cont broad-spectrum IV abx. Hyponatremia - as above. BMP am. Agree with TSH/cortisol levels am. Urine Na, urine osm levels - not c/w SIADH. Chronic HCTZ use likely contributing to low Na. Jeff Merino MD Subjective Patient on airborne isolation precautions. Patient seen at bedside and doing well. She is planning for bronchoscopy later this afternoon. She denies shortness of breath, chest pain, dizziness, lightheadedness, nausea, vomiting, edema. She did stated she does have a mild cough that is improving with mild sputum production, She was unsure of the color. She did give a sputum sample this morning. Patient reassessed postoperatively. She is doing well. All questions and concerns were answered and discussed. Tele: Sinus rhythm, HR 80s. Review of Systems Review of Systems: See HPI Physical Exam Physical Exam: The patient is awake, alert and oriented 3, well developed and well nourished, normocephalic and atraumatic, in no acute distress. Non-toxic appearing. HEENT- EOMI, mucous membranes moist. Hearing grossly intact. Heart-normal S1 and S2. No murmurs, rubs or gallops. Lungs-clear bilaterally, no respiratory distress, no accessory muscle use. Abdomen-normal bowel sounds and soft. No ascites noted. Non-tender. Extremities- no clubbing, cyanosis, or edema. Rheumatologic-normal range of motion. Psychiatric-normal affect. Results & Data Results & Data Vital Signs (Past 12 Hours) Vital Signs Temp Pulse Pulse Resp BP Pulse Ox O2 Del Method 02/04/24 11:42 83 02/04/24 10:37 36.5 C 74 18 120/81 96 Room Air 02/04/24 07:38 Room Air 02/04/24 07:16 36.9 C 88 20 105/71 98 Room Air 02/04/24 06:00 36.9 C 79 18 119/78 98 Room Air 02/04/24 03:41 37.0 C 81 18 106/68 95 Room Air Laboratory Results Reviewed CBC, BMP, urine osmolality, urine sodium, serum osmolality PG Care Time/CCT Total # of Minutes Spent Total Time Spent with Patient: Total time spent is greater than 50% in coordination of care (as documented) at patient's floor/unit and/or counseling patient: Coding [place] [address] SUB INP/OBS CARE 2/35MIN Patient Type Established Medical Decision Making Moderate Complexity Diagnoses Cavitating mass in right lower lung lobe J98.4 Hyponatremia E87.1 Tobacco abuse Z72.0 Hypokalemia E87.6 COPD (chronic obstructive pulmonary disease) J44.9 Hypertension I10
--- NOTE | 2024-02-04 14:08 | Pre Anesthesia Assessment ---
Date of Service February 04, 2024 Pre Sedation Assessment Vital Signs Temp Pulse Pulse Resp BP BP Pulse Ox 02/04/24 13:57 80 18 106/72 98 02/04/24 11:42 83 02/04/24 10:37 36.5 C 74 18 120/81 96 02/04/24 07:38 02/04/24 07:16 36.9 C 88 20 105/71 98 02/04/24 06:00 36.9 C 79 18 119/78 98 02/04/24 03:41 37.0 C 81 18 106/68 95 02/03/24 23:56 78 02/03/24 23:30 02/03/24 23:30 36.9 C 79 18 119/78 98 02/03/24 22:03 72 25 H 94 02/03/24 19:53 02/03/24 19:00 86 24 117/73 94 02/03/24 18:14 80 02/03/24 18:08 79 19 106/64 96 02/03/24 15:07 83 17 107/74 96 02/03/24 14:11 87 Pulse Ox O2 Del Method O2 Del Method O2 Flow Rate 02/04/24 13:57 Oxymask 4 02/04/24 11:42 02/04/24 10:37 Room Air 02/04/24 07:38 Room Air 02/04/24 07:16 Room Air 02/04/24 06:00 Room Air 02/04/24 03:41 Room Air 02/03/24 23:56 02/03/24 23:30 Room Air 02/03/24 23:30 Room Air 02/03/24 22:03 Room Air 02/03/24 19:53 95 Room Air 02/03/24 19:00 Room Air 02/03/24 18:14 02/03/24 18:08 Room Air 02/03/24 15:07 Room Air 02/03/24 14:11 Cardiovascular RRR, no murmur, no edema + regular rate and + regular rhythm + S1 normal and + S2 normal; no murmur + PMI normal no JVD + capillary refill normal Respiratory normal respiratory effort, lungs clear to auscultation + respiratory effort normal + clear to auscultation bilaterally Pre-Sedation Airway Assessment Smoking Status: Former smoker Hx Sleep Apnea: No Short, Thick Neck: No Thyromental Distance: > or= 3.5 Finger Breadths Oral Cavity: + WNL Mallampati Class: III ASA: ASA3 NPO Status Date of Last Intake of Fluids: 02/03/24 Time of Last Intake of Fluids: 21:00 Date of Last Intake of Solid Food: 02/03/24 Time of Last Intake of Solid Foods: 21:00 Notes The planned sedation has been discussed with the patient. Informed Consent was obtained. I have identified the patient, determined the appropriateness of sedation and have assessed the patient immediately prior to the procedure. All medicine(s) and interventions are by my order.
--- NOTE | 2024-02-04 14:08 | History & Physical Bridge Note ---
Date of Service February 04, 2024 History & Physical Bridge Note I have examined the patient, reviewed the History & Physical and in the interval since the performance of the History & Physical I have noted the following changes of clinical significance: no changes noted
--- NOTE | 2024-02-04 14:58 | Procedure Note ---
Procedure Note: Bronchoscopy Procedure PREOPERATIVE DIAGNOSIS: Right lower lobe lung abscess POSTOPERATIVE DIAGNOSIS: Right lower lobe lung abscess PROCEDURE PERFORMED: Flexible fiberoptic bronchoscopy with bronchial washings from the superior segment of the right lower lobe, cytologic brushings and microscopic brushing COMPLICATIONS: None. INDICATION: Rule out infectious etiology malignancy Sedation start time 1419. Procedure start time 1425. Procedure end time 1442. PROCEDURE: After obtaining an informed consent, the patient was brought to the Bronchoscopy Suite. Timeout performed immediately prior to the procedure. The patient had appropriate oxygen, blood pressure, heart rate, and respiratory rate monitoring applied and monitored continuously throughout the procedure. Supplemental oxygen via nasal cannula as per nursing records was applied to the nasopharynx with adequate saturations achieved. Topical anesthesia with nebulized 1% lidocaine was achieved. Subsequent to this, the patient was premedicated with 5 mg of midazolam and 150 mcg of fentanyl. Bronchoscope was then passed through the vocal cords. There is mucus noted throughout the trachea and the yaneli appeared sharp. I did a bilateral tracheobronchial tree inspection and no obvious endobronchial lesions were seen. I then turned my attention to the superior segment of the right lower lobe and instilled approximately 150 mL of saline and aspirated back approximately 40 mL of fluid which will be sent for cultures and cytology. We then performed microscopy brushings and cytology brushings of this region. Thick yellow secretions were noted emanating from the right lower lobe bronchus. Mild erythema was seen status post brushing. No active bleeding was seen. The scope was then withdrawn and the patient tolerated the procedure well. Recommendations: Follow cultures, cytology and fungal studies from bronchoscopy specimens. Recommend ID consultation. Continue broad-spectrum antibiotics with vancomycin and Zosyn. [facility] Procedure Codes (Charges) Pulmonary/Thoracic Procedure 1: Pulmonary and Thoracic: 01539 Dx bronchoscopy/wash Procedure 2: Pulmonary and Thoracic: 06859 Dx bronchoscopy/brush Sedation/Anesthesia Procedure 1: Sedation/Anesthesia: 78115 Mod Sedation by the same physician;Init15 Min Child Age 5 & Up
--- NOTE | 2024-02-04 15:34 | XRay Report ---
SINGLE VIEW CHEST CLINICAL HISTORY: Status post bronchoscopy. FINDINGS: 2 AP, portable, upright chest radiograph are compared to study dated 02/03/2024 and correla dipesh with chest CT dated 05/02/2023. The cardiomediastinal silhouette is unremarkable noted atheroscler otic calcification of the thoracic aorta. Emphysema and chronic interstitial thickening is similar to previous. Right perihilar airspace consolidation has increased from 02/03/2024, and there is now air space consolidation throughout the right lower lobe. Atelectasis is noted at the left lung base. No l arge pleural effusion is identified. The skeletal structures are osteopenic. The bony thorax is gross ly intact. Arthritic change is seen in the shoulders. IMPRESSION: 1. No pneumothorax is identified post procedure. 2. Emphysema. 3. Right perihilar airspace consolidation and airspace consolidation throughout the right lower lobe has increased from 02/03/2024. This could represent a worsening pneumonia, possibly with superimposed postbiopsy change. Underlying mass lesion is considered unlikely given a normal chest CT on 4. Radiographic follow-up to resolution is recommended. ACT 112: Negative or not required by law. Electronically signed by: Dhruv You M.D. 02/04/2024 3:32 PM
[2024-02-04] MEDS: MIDAZOLAM HCL 5 MG/ML 1 ML VIAL ONE (17:25)
[2024-02-04] MEDS: MIDAZOLAM HCL 1 MG/ML 2ML VIAL ONE (17:25)
[2024-02-04] MEDS: fentaNYL citrate PF 100 MCG/2 ML VIAL ONE ×2 (17:25)
[2024-02-05] MEDS: VANCOMYCIN HCL 1,000 MG/270 ML BAG IV SCH (03:01)
--- NOTE | 2024-02-05 05:52 | Electrocardiogram Report ---
Test Reason : Blood Pressure : */* mmHG Vent. Rate : 93 BPM Atrial Rate : 93 BPM P-R Int : 136 ms QRS Dur : 88 ms QT Int : 372 ms P-R-T Axes : 66 69 70 degrees QTcB Int : 462 ms Normal sinus rhythm Nonspecific T wave abnormality Abnormal ECG When compared with ECG of 08-Jan-2021 12:20, Nonspecific T wave abnormality now evident in Anterior leads Confirmed by Junior Newman ([id number]) on 02/05/2024 5:52:08 AM Referred By: Confirmed By: Junior Newman
[2024-02-05 07:41] LABS: Hematocrit (blood only) 34.7 % (37.0-47.0); Hemoglobin 11.5 g/dl (12.0-16.0); Mean Corpuscular Hgb Conc 33.1 g/dL (32.0-36.0); Mean Corpuscular Volume 93.5 fL (80.0-100.0); Mean Platelet Volume 9.1 fL (9.4-12.4); Platelet Count 535 K/uL (130-400); RDW Coefficient of Variation 11.9 % (11.5-14.5); RDW Standard Deviation 41.3 fL (36.4-46.3); Red Blood Count 3.71 M/uL (4.20-5.40); White Blood Count 11.32 K/ul (4.8-10.8)
[2024-02-05 07:54] LABS: BUN Creatinine Ratio 11.3 (10-20); Calcium 8.7 mg/dl (8.6-10.3); Creatinine Clr Calc Pharmacy 51.5 ml/min; Potassium 3.5 mmol/L (3.5-5.1)
[2024-02-05 08:09] LABS: Thyroid Stimulating Hormone 1.083 uIu/ml (0.300-4.500)
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
--- NOTE | 2024-02-05 11:32 | Pulmonology Progress Note ---
Date of Service February 05, 2024 Assessment & Plan (1) Cavitating mass in right lower lung lobe: Plan: Differential for the cavitary lesion is broad including atypical infection such as nocardia, actinomyces, fungal infections and tuberculosis. QuantiFERON gold and Fungitell is pending. Bronchoscopic evaluation performed yesterday (02/05/2024) and was found to demonstrate significant amounts of purulent material. Abscess cultures are pending at this time. Will continue with vancomycin and Zosyn pending cultures with speciation. Patient is clinically stable at this time, however, until we are able to establish appropriate outpatient treatment as this could require lengthy and aggressive treatment up to and including PICC line with intravenous antibiotics, patient benefit from remaining inpatient at this time. She is hopeful to be discharged soon and I do feel as soon as we do have a plan in place for her she can be discharged home with the intent for close outpatient follow-up. This was reiterated to the patient at great length. Thankfully, she is feeling well after her procedure. Will defer to infectious disease for their recommended management in the outpatient setting. We would be happy to see the patient back in 6 weeks and follow-up with CT noncontrast of the chest to be performed prior to office visit. Would be happy to arrange follow-up imaging through our outpatient clinic. (2) Lesion of lung: Plan: She did have a 4 to 5 mm right lower lobe lung nodule on CT chest 05/02/2023 now has a cavitary lesion. Unclear whether these findings are related or not. The nodule seen on previous CT was on the periphery and perifissural, but it does appear to have grown in size slightly by about 2 mm. It is not in the same location which is reassuring as the cavitary lesion which is reassuring. Malignancy certainly in the differential. (3) COPD (chronic obstructive pulmonary disease): Plan: Patient does have diffuse scant expiratory wheezes noted. From outpatient report, this does appear to be similar to the patient's baseline, unfortunately. Will discuss with respiratory therapy regarding as needed DuoNeb therapies to be instituted for this patient. Otherwise, continue with current inhaler regimen. She does have a history of moderate airflow obstruction with severe air trapping on previous PFTs and has been seen in the pulmonary clinic in the past. Plan Thank you for the consult. Will follow with you. Admission and Anticipated Discharge Date Admission Date: February 03, 2024 Subjective Patient seen and evaluated at bedside. She reports feeling well overall. She offers no complaints of chest pain, shortness of breath, cyst, or pleuritic discomfort. Review of Systems Review of Systems: Unchanged from admission Physical Exam Physical Exam: VITAL SIGNS Vital signs and nursing notes were reviewed. GENERAL 63-year-old female appearing her stated age who is in no acute distress. Communicates well with provider and answers questions appropriately. SKIN Without rashes or lesions. NOSE Midline and without cyanosis. MOUTH/OROPHARYNX Without perioral cyanosis. NECK Neck with FROM. LUNGS Chest wall evaluation demonstrates normal chest wall A:P diameter. Auscultation reveals diffuse, fine wheezes throughout all lung dominguez. CARDIAC RRR with S1/S2. No murmur, rubs, or gallops appreciated. EXTREMITIES Nail clubbing not present. No peripheral cyanosis. No pretibial edema present. +3/5 radial palpated throughout. PSYCH A&Ox3 and cooperates fully with examiner. Pt is very pleasant and interacts well with examiner. Results & Data Results & Data Vital Signs (Past 12 Hours) Vital Signs Temp Pulse Pulse Resp BP Pulse Ox O2 Del Method 02/05/24 08:54 Room Air 02/05/24 08:05 37.2 C 89 18 98/65 L 96 Room Air 02/05/24 07:17 82 02/05/24 03:06 36.9 C 83 16 103/68 93 Room Air PG Care Time/CCT Total # of Minutes Spent Total Time Spent with Patient: Total time spent is greater than 50% in coordination of care (as documented) at patient's floor/unit and/or counseling patient: Coding Level of Care Code 94623 SUB INP/OBS CARE 2/35MIN Diagnoses Cavitating mass in right lower lung lobe J98.4 Lesion of lung R91.1 COPD (chronic obstructive pulmonary disease) J44.9
--- NOTE | 2024-02-05 17:52 | Hospitalist Progress Note ---
Date of Service February 05, 2024 Assessment & Plan (1) Cavitating mass in right lower lung lobe: Plan: pulmonary abscess - recent generalized illness - on Augmentin, prednisone, and azithromycin prior to admission - No recent travel, immunosuppression, diabetes, chronic steroids, transplant or exposure to suggest tuberculosis - 40+ smoking pack year history - found on outpt CT scan 01/29 - 4.9 x 4.8 cm thick walled cystic lesion; additional nodule in superior segments of RLL seen and relating to previous CT scan 05/02/2023, unclear if second nodule relating to cystic lesion at this time - leukocytosis improving, afebrile - procal negative - MRSA nasal swab negative - sputum culture pending - QuantiFERON gold and Fungitell pending - surgical cultures pending - continue with IV vancomycin + Zosyn; pharmacy following, renal function improving - pulmonology following; bronchoscopy 02/03 - Follow-up in [address] noncontrast of the chest - infectious disease following (2) Hyponatremia: Plan: Hyponatremic on admission; on HCTZ at home secondary to being hypovolemic - Na 129, likely decreased secondary to being n.p.o./ dehydration 02/03 - Serum osmolality 265, Urine NA 25, Urine osmol 234 - suggestive of hypotonic hyponatremia - recent TSH 02/04 WNL - Cortisol level WNL - daily BMP - Continue to promote oral hydration (3) Tobacco abuse: Plan: Declines nicotine patch, quit smoking about 2 weeks ago and would like to be done smoking (4) Hypokalemia: Plan: Improved Patient on hydrochlorothiazide at home - K+ 3.2 -> 40 MEQ given -> 3.8 - Continue to hold hydrochlorothiazide - Daily BMP (5) COPD (chronic obstructive pulmonary disease): Plan: - Non-hypoxic - No acute exacerbation suspected at this time - Continue LABA/LAMA inhaler - as per pulmonology recommendations discontinue ICS inhaler at this time for concern of acute infection (6) Hypertension: Plan: Hypotensive on admission - Held home HCTZ and olmesartan on admission; continue - will likely discontinue hydrochlorothiazide on discharge given hypokalemia and hyponatremia - Can restart ARB if blood pressure becomes elevated Plan Anxiety - continue fluoxetine and Librium GERD - switch Nexium to pantoprazole per hospital formulary VTE Prophylaxis - heparin 5000 units SQ BID (hold prior to bronchoscopy) Diet - regular Disposition - med/tele Admission and Anticipated Discharge Date Admission Date: February 03, 2024 Supervising Physician Co-Signing Physician Notes Attending Attestation - Chart reviewed in detail, care plan d/w RAFAEL Sanford. I agree w/ the cowart components of her documentation. Await bronch cultures - thus far no specific pathogen isolated. Appreciate ID consultation today. Cont current IV abx (zosyn/vanco). Cont airborne isolation. Bronchial washings - path report - no malignant cells. Jeff Merino MD Subjective Patient seen at bedside and doing well with no acute events overnight. She wants to go home. Discussed benefits of staying given no cultures have returned and need for IV antibiotics. She was understanding and willing to stay. She denies fevers, chills, shortness of breath, chest pain. Her cough has improved and she has had little to no sputum production. Appears as though pulmonology also had lengthy discussion with the patient regarding remaining inpatient at this time. Tele: Sinus, HR 80s-90s. Review of Systems Review of Systems: See HPI Physical Exam Physical Exam: The patient is awake, alert and oriented 3, well developed and well nourished, normocephalic and atraumatic, in no acute distress. Non-toxic appearing. HEENT- EOMI, mucous membranes dry. Hearing grossly intact. Heart-normal S1 and S2. No murmurs, rubs or gallops. Lungs- wheezes noted, no respiratory distress, no accessory muscle use. Abdomen-normal bowel sounds and soft. No ascites noted. Non-tender. Extremities- no clubbing, cyanosis, or edema. Rheumatologic-normal range of motion. Psychiatric-normal affect. Results & Data Results & Data Vital Signs (Past 12 Hours) Vital Signs Temp Pulse Pulse Resp BP Pulse Ox O2 Del Method 02/05/24 11:58 37.2 C 75 20 134/83 95 Room Air 02/05/24 08:54 Room Air 02/05/24 08:05 37.2 C 89 18 98/65 L 96 Room Air 02/05/24 07:17 82 Laboratory Results Reviewed CBC, BMP, TSH, cortisol PG Care Time/CCT Total # of Minutes Spent Total Time Spent with Patient: Total time spent is greater than 50% in coordination of care (as documented) at patient's floor/unit and/or counseling patient: Coding [place] [address] SUB INP/OBS CARE 50MIN Patient Type Established Medical Decision Making Moderate Complexity Diagnoses Cavitating mass in right lower lung lobe J98.4 Hyponatremia E87.1 Tobacco abuse Z72.0 Hypokalemia E87.6 COPD (chronic obstructive pulmonary disease) J44.9 Hypertension I10
[2024-02-06 07:50] LABS: Hematocrit (blood only) 34.4 % (37.0-47.0); Hemoglobin 11.3 g/dl (12.0-16.0); Mean Corpuscular Hemoglobin 30.7 pg (25.0-34.0); Mean Corpuscular Hgb Conc 32.8 g/dL (32.0-36.0); Mean Corpuscular Volume 93.5 fL (80.0-100.0); Mean Platelet Volume 8.9 fL (9.4-12.4); Platelet Count 519 K/uL (130-400); RDW Coefficient of Variation 11.9 % (11.5-14.5); RDW Standard Deviation 41.2 fL (36.4-46.3); Red Blood Count 3.68 M/uL (4.20-5.40); White Blood Count 9.32 K/ul (4.8-10.8)
[2024-02-06 08:00] LABS: BUN Creatinine Ratio 12.6 (10-20); Calcium 8.9 mg/dl (8.6-10.3); Creatinine Clr Calc Pharmacy 49.8 ml/min; Potassium 3.3 mmol/L (3.5-5.1)
[2024-02-06] MEDS: POTASSIUM CHLORIDE CRTAB 20 MEQ TABCR PO STA (08:35)
[2024-02-06 11:58] LABS: Quantiferon Mitogen-NIL 8.21 IU/mL; Quantiferon NIL 0.01 IU/mL; Quantiferon TB Gold Plus NEGATIVE (NEGATIVE); Quantiferon TB1-NIL 0.03 IU/mL; Quantiferon TB2-NIL 0.02 IU/mL
--- NOTE | 2024-02-06 11:59 | Hospitalist Progress Note ---
Date of Service February 06, 2024 Assessment & Plan (1) Cavitating mass in right lower lung lobe: Plan: pulmonary abscess - recent generalized illness - on Augmentin, prednisone, and azithromycin prior to admission - No recent travel, immunosuppression, diabetes, chronic steroids, transplant or exposure to suggest tuberculosis - 40+ smoking pack year history - found on outpt CT scan 01/29 - 4.9 x 4.8 cm thick walled cystic lesion; additional nodule in superior segments of RLL seen and relating to previous CT scan 05/02/2023, unclear if second nodule relating to cystic lesion at this time - leukocytosis resolved, afebrile - procal negative - MRSA nasal swab negative - sputum culture completed - showing few epithelial cells, many WBC, moderate gram-positive cocci, few gram-negative cocci, few gram-positive bacilli - QuantiFERON gold and Fungitell pending - surgical cultures pending - continue with IV vancomycin + Zosyn; pharmacy following, renal function improving - pulmonology following; bronchoscopy 02/03 - Follow-up in [address] noncontrast of the chest - infectious disease following (2) Hyponatremia: Plan: Hyponatremic on admission; on HCTZ at home secondary to being hypovolemic improving - Na 130 - Serum osmolality 265, Urine NA 25, Urine osmol 234 - suggestive of hypotonic hyponatremia - recent TSH 02/04 WNL - Cortisol level WNL - daily BMP - Continue to promote oral hydration - will discontinue HCTZ on discharge; currently held (3) Tobacco abuse: Plan: - Declines nicotine patch, quit smoking about 2 weeks ago and would like to be done smoking (4) Hypokalemia: Plan: Patient on hydrochlorothiazide at home - Potassium repletion throughout hospital stay - K+ 3.3 -> 40 MeQ PO given - Continue to hold hydrochlorothiazide; will discontinue in usp setting - Daily BMP (5) COPD (chronic obstructive pulmonary disease): Plan: - Non-hypoxic - No acute exacerbation suspected at this time - Continue LABA/LAMA inhaler - as per pulmonology recommendations discontinue ICS inhaler at this time for concern of acute infection (6) Hypertension: Plan: Hypotensive on admission - Held home HCTZ and olmesartan on admission; continue - will likely discontinue hydrochlorothiazide on discharge given hypokalemia and hyponatremia - Can restart ARB if blood pressure becomes elevated Plan Chronic stable diagnoses: Anxiety - continue fluoxetine and Librium GERD - switch Nexium to pantoprazole per hospital formulary VTE Prophylaxis - heparin 5000 units SQ BID Diet - regular Disposition - med/tele Completed patient education of current condition and management was provided. All questions that the patient asked were answered, and patient demonstrated complete understanding. Admission and Anticipated Discharge Date Admission Date: February 03, 2024 Subjective Patient seen at bedside, doing well with no acute events overnight. She stated she really just wants to go home. She does not want to keep waiting for her cultures come back. Explained to the patient that a pulmonary abscess can be serious and we do not know exactly what is causing it yet. Will wait to see if cultures result today. Her dad had a similar issue and had to have a lobe of his lung removed. She denies fevers, dyspnea, and edema. She still has a cough and sputum production but is greatly improved, sputum production clear. Tele: Sinus rhythm, HR 80s-90s. Review of Systems 2 Review of Systems: See HPI Physical Exam Physical Exam: The patient is awake, alert and oriented 3, well developed and well nourished, normocephalic and atraumatic, in no acute distress. Non-toxic appearing. HEENT- EOMI, mucous membranes dry. Hearing grossly intact. Heart-normal S1 and S2. No murmurs, rubs or gallops. Lungs- Clear lung sounds bilaterally, no respiratory distress, no accessory muscle use. Abdomen-normal bowel sounds and soft. No ascites noted. Non-tender. Extremities- no clubbing, cyanosis, or edema. Rheumatologic-normal range of motion. Psychiatric- anixous affect. Results & Data Results & Data Vital Signs (Past 12 Hours) Vital Signs Temp Pulse Pulse Resp BP Pulse Ox O2 Del Method 02/06/24 08:14 Room Air 02/06/24 08:05 37.3 C 79 18 110/71 94 Room Air 02/06/24 07:48 80 02/06/24 02:30 37.1 C 83 18 117/76 95 Room Air Laboratory Results Reviewed CBC and BMP PG Care Time/CCT Total # of Minutes Spent Total Time Spent with Patient: Total time spent is greater than 50% in coordination of care (as documented) at patient's floor/unit and/or counseling patient: Coding Level of Care Code 11698 SUB INP/OBS CARE 3/50MIN Diagnoses Cavitating mass in right lower lung lobe J98.4 Hyponatremia E87.1 Tobacco abuse Z72.0 Hypokalemia E87.6 COPD (chronic obstructive pulmonary disease) J44.9 Hypertension I10 Time Spent (min) 60
[2024-02-06 12:09] VITALS: BP 112/73; RESP 17; TEMP 98.4; O2SAT 95
[2024-02-06] MEDS: AMPICILLIN/SULBACTAM SOD 3,000 MG/100 ML BAG IV SCH (13:25)
--- NOTE | 2024-02-06 14:34 | Infectious Disease Progress Nt ---
Date of Service February 06, 2024 Assessment & Plan (1) Cavitating mass in right lower lung lobe: (2) Wheezing: (3) Cough: (4) Rheumatoid arthritis: (5) COPD (chronic obstructive pulmonary disease): Plan 63yo F with h/o rheumatoid arthritis (symptomatic management), COPD, depression, osteoarthritis, left breast papillary carcinoma s/p partial mastectomy 01/22/24, h/o lumbar disc surgery who presented on 02/[address] chest. She started feeling unwell on 01/23 and was seen at urgent care where she was given augmentin 500mg bid x 10d and prednisone for sinus infection and bronchitis (picked up meds on 01/25). On 01/28, she felt more generalized fatigue and saw her PCP who started azithromycin (started 01/29) and obtained a CXR then CT chest which showed a cavitary lesion. She reported a new cough productive of green/brown sputum, baseline SOB and wheezing. Here she was afebrile, vss, satting well on RA. Initial labs with WBC 13.19. Cr 1.32, AST/ALT wnl. PCT 0.07. UA with 3-5 WBC. CXR 02/02 with 4.9 cm right suprahilar airspace opacity, lower lung interstitial thickening, mild asymmetric right hilar prominence which may be due to overlapping airspace opacity or LAD. CT chest 01/29 with thick walled cystic lesion in RLL with surrounding ground-glass opacity and septal thickening, ddx includes malignancy, infection including cavitary lesion of fungal or abscess; significant centrilobular emphysema. S/p bronch on 02/03 (noted significant amount of purulent material). CXR on 02/03 noted right perihilar airspace consolidation and airspace consolidation throughout in RLL increased. She has been getting vancomycin and zosyn. ID consulted 02/04. No c lear TB exposures/risks, no travel. Sputum and bronch cx with oral gela. Quantiferon negative. Given negative AFB smear, negative quantiferon, and low risks for TB, I think likelihood of TB is low. Since cultures did not grow MRSA or Pseudomonas, Taryn de-escalated abx to Unasyn. Remainder of fungal w/u is in process. Would ensure this is followed up. Patient insisting on discharge. If she goes home, can dc on augmentin. She says she was on a 500mg bid dose at home, which may have been a lower dose. Ideally would monitor if there is improvement on Unasyn/augmentin regimen but patient would like to leave. Advise close outpatient follow up. # Cavitary lesion of RLL # h/o COPD # h/o RA (not on immunosuppressants) - f/u AFB cx and fungal studies - f/u bronch cx - f/u urine histo Ag, and BDG - Taryn changed abx to Unasyn 3g IV q6h - if she is discharged, can send home on augmentin 875mg PO bid for 4-6 weeks with follow up outpatient CT chest prior to end of therapy - she should have close outpatient follow up, local ID provider if possible Discussed with primary team. ID will continue to follow. If questions or concerns over the weekend, contact Infectious Disease Call Center . Shirley Beard MD [facility], Division of Infectious Diseases [facility]: [phone] Admission and Anticipated Discharge Date Admission Date: February 03, 2024 Subjective Subsequent visit was provided via telemedicine using two-way real-time interactive telecommunication between the patient and the telemedicine provider. For the duration of the visit, the provider was performing the assessment from a different facility than the patient. This includesuse of bluetooth stethoscope forauscultationperformed by the telepresenter that the telemedicine provider can hear if described in the physical exam. In Home Aide contact information: Please call [facility] Center [phone]. (Phone Number For Physician Use Only) After establishing a telemedicine visit, patient was: Patient was verified with two unique identifiers, Patient/authorized rep acknowledged consent and understanding and Gave permission to continue telehealth session Time Spent with Patient: Subsequent => 55 min Patient seen and examined. Reports improvement in cough from before. Denies feeling short of breath. No chest pains. Insisting on going home. Physical Exam Physical Exam: General: Awake, alert, no acute distress HEENT: NC/AT, EOMI, mmm Neck: supple Lungs: breathing comfortably on RA Abdomen: soft, NT/ND Results & Data Vital Signs (Past 12 Hours) Vital Signs Temp Pulse Pulse Resp BP Pulse Ox O2 Del Method 02/06/24 12:07 36.9 C 76 17 112/73 95 Room Air 02/06/24 08:14 Room Air 02/06/24 08:05 37.3 C 79 18 110/71 94 Room Air 02/06/24 07:48 80 Laboratory Results Labs reviewed. 02/02 MRSA screen: negative 02/03 SCx: light normal gela 02/03 Bronch wash: scant normal gela 02/03 Bronch wash/brush AFB: smear neg 02/03 Bronch wash/brush fungal: no yeast/hyphae 02/03 Bronch brush: no growth Abx Vanc 02/02- Zosyn 02/02-
--- NOTE | 2024-02-06 15:59 | Discharge Summary ---
Discharge Summary Date of Service February 06, 2024 Principal Dx & Hospital Course #1 = Principal Diagnosis (1) Cavitating mass in right lower lung lobe: pulmonary abscess patient with greatly improved symptoms; only has a mild cough and clear sputum production on discharge - recent generalized illness - on Augmentin, prednisone, and azithromycin prior to admission - No recent travel, immunosuppression, diabetes, chronic steroids, transplant or exposure to suggest tuberculosis - 40+ smoking pack year history - found on outpt CT scan 01/29 - 4.9 x 4.8 cm thick walled cystic lesion; additional nodule in superior segments of RLL seen and relating to previous CT scan 05/02/2023, unclear if second nodule relating to cystic lesion at this time - leukocytosis resolved, afebrile - procal negative - MRSA nasal swab negative - sputum culture completed - showing few epithelial cells, many WBC, moderate gram-positive cocci, few gram-negative cocci, few gram-positive bacilli - QuantiFERON gold negative, no AFB on smear - TB unlikely - surgical cultures pending ID following: - discontinued vancomycin and Zosyn 02/05 - given 1 dose of IV Unasyn prior to discharge - will be discharged on Augmentin 875 mg twice daily for 4 to 6 weeks - Referral made to local ID clinic for follow up pulmonology following: - bronchoscopy 02/03 with many surgical cultures taken; pending on discharge - patient to follow-up with pulmonology 1 week after discharge - Follow-up in [address] noncontrast of the chest (2) Hyponatremia: Hyponatremic on admission; on HCTZ at home secondary to being hypovolemic improving - Na 130 - Serum osmolality 265, Urine NA 25, Urine osmol 234 - suggestive of hypotonic hyponatremia - recent TSH 02/04 WNL - Cortisol level WNL - Continue to promote oral hydration at home - will discontinue HCTZ on discharge (3) Hypokalemia: Patient on hydrochlorothiazide at home - Potassium repletion throughout hospital stay - K+ 3.3 02/05 -> 40 MeQ PO given - discontinue hydrochlorothiazide on discharge (4) Tobacco abuse: - Declines nicotine patch, quit smoking about 2 weeks ago and would like to be done smoking (5) COPD (chronic obstructive pulmonary disease): - Non-hypoxic - No acute exacerbation suspected at this time - Continue LABA/LAMA inhaler - as per pulmonology recommendations discontinue ICS inhaler at this time for concern of acute infection - will send changed inhaler prescription to pharmacy on discharge (6) Hypertension: Hypotensive on admission - Held home HCTZ and olmesartan on admission - will discontinue hydrochlorothiazide on discharge given hypokalemia and hyponatremia - Can restart ARB on discharge Plan Chronic stable diagnoses: Anxiety - continue fluoxetine and Librium GERD - switch Nexium to pantoprazole per hospital formulary; to take home medication upon discharge VTE Prophylaxis - heparin 5000 units SQ BID Diet - regular Disposition - patient insisting on going home 02/05; discharge home 02/05 with pulmonology follow-up in 1 week, and referral to local infectious disease clinic placed. Completed patient education of current condition and management was provided. All questions that the patient asked were answered, and patient demonstrated complete understanding. Notes For Next Care Provider Medication Changes From Visit Augmentin 875 mg BID for 4-6 weeks Discontinue hydrochlorothiazide Admission HPI Per Admitting Provider Monica Yoder is a 63 year old female who presents to the ER due to abnormal outpatient CT chest. Her initial sickness started on January 23 with generalized illness and vomited. She woke up the following day and felt like she had been run over by a [employer] train. She was seen at urgent care and diagnosed ith sinus infection and bronchitis and started on Augmentin and prednisone (picked up on January 25). She reports no significant change with this medication. On January 28 while going to work she felt more generalized fatigue and illness therefore saw her PCP who subsequently arranged a CXR, added azithromycin (started January 29). CXR was concerning for a cavitory lesion and CT chest was arranged for the following day. This confirmed a cavitary lesion and she was set up with pulmonology follow up and eventual recommendation to come to the ER today on review of her imaging. She reports new productive cough of brown/green sputum during this time. Her shortness of breath and wheezing are at baseline. She hasn't smoked for 2 weeks due to this illness (previously 1 pck/day). Right back chest pain only on coughing, none on inspiration. No fever or chills. No recent travel outside of the country. Admission Exam Per Admitting Provider Constitutional: WD/WN, vitals as above Eyes: + anicteric sclerae; normal pupil size ENMT: external ear and nose normal, oropharynx normal Respiratory: normal respiratory effort; no respiratory distress Auscultation: breath sounds present, no diminished lung sounds, no crackles, no rales, no rhonchi and no wheezes Cardiovascular: RRR, no murmur, no edema Gastrointestinal (Abdomen): normal bowel sounds, soft, nontender, no hepatosplenomegaly Skin: no rashes, warm and dry Neurologic: moves all extremities and awake; not confused Psychiatric: A+Ox3, euthymic affect Genitourinary: no CVA tenderness Discharge Exam The patient is awake, alert and oriented 3, well developed and well nourished, normocephalic and atraumatic, in no acute distress. Non-toxic appearing. HEENT- EOMI, mucous membranes moist. Hearing grossly intact. Heart-normal S1 and S2. No murmurs, rubs or gallops. Lungs- Clear lung sounds bilaterally, no respiratory distress, no accessory muscle use. Abdomen-normal bowel sounds and soft. No ascites noted. Non-tender. Extremities- no clubbing, cyanosis, or edema. Rheumatologic-normal range of motion. Psychiatric- anxious affect. Discharge Plan Discharge Items Patient Disposition: Home - Self-Care Reason For Visit: CAVITORY PULMONARY MASS Discharge Diagnosis: 1. Pulmonary abscess 2. Hyponatremia 3. Hypokalemia Condition on Discharge: Good Activity: As commented below Activity Comment: Increase as tolerated Lifting: Gradually increase as tolerated Exercise/Sports: Gradually increase as tolerated Non-emergency contact: Primary Care Provider and Hr Representative Call non-emergency contact if: you have any medication questions, your symptoms worsen and your temperature is above 101 Follow-up/Referrals: Miguel Molina MD [Physician] - ( follow-up in 1 week) Tamela Díaz DO [Primary Care Provider] - ( follow-up in 1 to 2 weeks) Diet: Regular Addtl Attending Provider Instructions: You were hospitalized for a pulmonary abscess that was seen on your bronchoscopy with pulmonology 02/03. Your surgical cultures are still pending as we are not sure exactly what bacteria caused this, but the tests for tuberculosis were negative. You received IV antibiotics during your hospital stay. After discussion with infectious disease, you are being sent home on Augmentin 875 mg that you will take twice a day for the next 4 to 6 weeks. You are going to have a follow-up appointment with pulmonology in 1 week and will likely have repeat scans in about 6 weeks. A referral was also made with case management for you to have follow-up with a local infectious disease clinic. They will be reaching out to you to schedule an appointment. As discussed, call your PCP, wood barrel reconditioner, or return to the hospital if your symptoms worsen; if you have increased cough, sputum production, or develop a fever. Pulmonology recommended that you do not use the part of your inhaler known as an inhaled corticosteroid as this can worsen infection. I am sending you a new inhaler to your pharmacy that does not have the steroid component to it. You can discuss resuming your previous inhaler with pulmonology during your follow- up next week. You are being sent home on an antibiotic called Augmentin. This can sometimes cause diarrhea. It can also put patient's at an increased risk of a bacteria known as Clostridium difficile (C diff). If you have more than 3-5 episodes of diarrhea a day on this medication, call your family doctor to be evaluated. You were also found to have low sodium and low potassium during your admission. To increase your sodium you can continue to drink lots of water. You were given potassium supplements during your hospital stay. It is likely that this was caused by your home diuretic known as hydrochlorothiazide. It is recommended that you discontinue hydrochlorothiazide on discharge with follow-up with your PCP to discuss blood pressure control. Your blood pressure was stable during your admission with holding the HCTZ. With every hospitalization, it is recommended that you follow up with your PCP in 1-2 weeks after being discharged. Pending Studies at Discharge: Yes Studies:: Fungitell and surgical cultures Stand-Alone Forms: My [facility] [employer], Smoking Cessation Medications and DC Order Prescriptions: New Anoro Ellipta 62.5-25 mcg/actuation Blister With Device 1 inh inhalation DAILY 30 Days Qty: 60 0RF amoxicillin-pot clavulanate 875-125 mg tablet 1 tab PO BID 28 Days Qty: 60 0RF Continued fexofenadine-pseudoephedrine 60-120 mg tablet extended release 12 hr 1 tab PO BID Qty: 180 3RF fluoxetine 40 mg capsule 40 mg PO BID Qty: 180 3RF olmesartan 5 mg tablet 10 mg PO QAM Qty: 180 1RF chlordiazepoxide HCl 10 mg capsule 10 mg PO TID Qty: 90 2RF albuterol sulfate 90 mcg/actuation HFA aerosol inhaler 2 puff inhalation Q4H PRN (Reason: shortness of breath or wheezing) Qty: 18 3RF folic acid 1 mg tablet 1 mg PO BID Qty: 60 5RF Rx Instructions: TAKE ONE TABLET BY MOUTH TWICE A DAY esomeprazole magnesium [Nexium] 20 mg capsule,delayed release(DR/EC) 20 mg PO BID Qty: 60 1RF hydrocodone-acetaminophen 5-325 mg tablet 1 tab PO BID PRN (Reason: pain) Qty: 60 0RF (DME) Spacer for Inhaler Misc See Rx Instructions .Route Qty: 1 0RF Rx Instructions: use with HFA every 4 hrs PRN Probiotic Blend 2 billion cell-50 mg capsule 1 cap PO DAILY Held Trelegy Ellipta 100-62.5-25 mcg blister with device 1 inh inhalation DAILY Hold Instructions: until pulmonology follow-up Discontinued hydrochlorothiazide 25 mg tablet 25 mg PO DAILY Qty: 30 2RF amoxicillin-pot clavulanate 875-125 mg tablet 1 tab PO BID Rx Instructions: Start Date 01/26/24 x10 day supply azithromycin 250 mg tablet See Rx Instructions PO .COMPLEX Qty: 6 0RF Rx Instructions: For 250 mg dose pack: take 500 mg today (day 1), then 250 mg for 4 days (days 2-5) PO. Start Date 01/31/24 x5 day supply Discharge Orders: Discharge Order (Routine); Ordered 02/06/24 Ordered By: Anita Sanford Admission Data Admit Date/Time: 02/03/24 15:10 Attending Provider: Jeff Merino Admit Provider: Jeff Smith Primary Care Provider: Tamela Díaz Other Providers: Jeff Smith; Miguel Molina; Carine Kingston; Dianna Patricia; Shirley Beard; Lucio Salvador; Bibi Moore; Nano Roberts Hospital Stay Data Consultations 02/03/24 14:19 ED Decision to Admit Stat 02/03/24 15:46 Consult Pulmonology Routine 02/04/24 16:01 Consult Infectious Diseases Routine Procedures Performed Operation Date: 02/04/24 14:00 Actual Procedures p Bronchoscopy Radiology - Miguel Molina MD Diagnostic Imagining Performed Chest Xray Pending Results Patient Have Any Pending Studies at Discharge: Yes Discharge Instructions Given to Patient (Per Discharging Provider) You were hospitalized for a pulmonary abscess that was seen on your bronchoscopy with pulmonology 02/03. Your surgical cultures are still pending as we are not sure exactly what bacteria caused this, but the tests for tuberculosis were negative. You received IV antibiotics during your hospital stay. After discussion with infectious disease, you are being sent home on Augmentin 875 mg that you will take twice a day for the next 4 to 6 weeks. You are going to have a follow-up appointment with pulmonology in 1 week and will likely have repeat scans in about 6 weeks. A referral was also made with case management for you to have follow-up with a local infectious disease clinic. They will be reaching out to you to schedule an appointment. As discussed, call your PCP, wood barrel reconditioner, or return to the hospital if your symptoms worsen; if you have increased cough, sputum production, or develop a fever. Pulmonology recommended that you do not use the part of your inhaler known as an inhaled corticosteroid as this can worsen infection. I am sending you a new inhaler to your pharmacy that does not have the steroid component to it. You can discuss resuming your previous inhaler with pulmonology during your follow- up next week. You are being sent home on an antibiotic called Augmentin. This can sometimes cause diarrhea. It can also put patient's at an increased risk of a bacteria known as Clostridium difficile (C diff). If you have more than 3-5 episodes of diarrhea a day on this medication, call your family doctor to be evaluated. You were also found to have low sodium and low potassium during your admission. To increase your sodium you can continue to drink lots of water. You were given potassium supplements during your hospital stay. It is likely that this was caused by your home diuretic known as hydrochlorothiazide. It is recommended that you discontinue hydrochlorothiazide on discharge with follow-up with your PCP to discuss blood pressure control. Your blood pressure was stable during your admission with holding the HCTZ. With every hospitalization, it is recommended that you follow up with your PCP in 1-2 weeks after being discharged. Total Time Total Time Spent Total Time Spent (In Minutes): 75 mins Total Time Includes: Examination of the Patient, Discharge Planning, Medication Reconciliation and Communication With Other Providers ( Infectious disease and pulmonology) Coding Level of Care Code 51506 INP/OBS DISCH >30 MIN Diagnoses Cavitating mass in right lower lung lobe J98.4 Hyponatremia E87.1 Hypokalemia E87.6 Tobacco abuse Z72.0 COPD (chronic obstructive pulmonary disease) J44.9 Hypertension I10
[2024-02-06 17:02] VITALS: PULSE 76
[2024-02-07 17:12] LABS: Fungitell (1-3)-B-D-Glucan <31 pg/mL
== END 2024-02-06 17:59 | disposition home or self-care (01) | DRG 178 ==
LOC: ED 11:54 → SUATTDRO 15:10 → EDINP 15:10 → 2S 22:59